=== PATIENT | male | born 1970 ===

== ENCOUNTER 2023-10-07 16:56 | Emergency (ER) | payer SELFPAY ==
[2023-10-07] MEDS: Bacitracin Oint 1 GM U/D Packet TOP ONE (18:01)
== END 2023-10-07 18:10 | disposition home or self-care (01) ==
LOC: MW.ED 16:56
DX: S01.111A Laceration without foreign body of right eyelid and periocular area, initial encounter (principal); Z75.8 Other problems related to medical facilities and other health care; W10.9XXA Fall (on) (from) unspecified stairs and steps, initial encounter
CPT/HCPCS: 99282